=== PATIENT | female | born 1960 | race Caucasian/White ===

== ENCOUNTER 2018-11-15 17:05 | Emergency (ER) | payer OTHER ==
[2018-11-15] MEDS: FAMOTIDINE 20 MG TAB PO (17:49)
[2018-11-15] MEDS: predniSONE 20 MG TAB PO (17:49)
== END 2018-11-15 18:30 | disposition home or self-care (01) ==
LOC: FTE 17:05
DX: L50.0 Allergic urticaria (principal)
CPT/HCPCS: 99283; J7512